=== PATIENT | female | born 1970 | race Hispanic/Latino ===

== ENCOUNTER 2025-07-17 01:45 | Emergency (ER) | payer MEDICARE, MEDICAID ==
[~2025-07-17] VITALS: Ht 127 cm; Wt 94.3 kg
[2025-07-17 02:15] LABS: IMMATURE GRANULOCYTE ABSOLUTE 0.01 K/uL (0-1); NUCLEATED RED BLOOD CELLS 0.0 % (0.0-0.19); PLATELET COUNT (AUTO) 233 K/uL (130-400); RED BLOOD CELL COUNT(AUTO) 4.91 MIL/uL (4.00-5.50); RED CELL DISTRIBUTION WIDTH 13.8 % (11.0-15.5); WHITE BLOOD COUNT (AUTO) 3.5 K/uL (4.8-10.8)
[2025-07-17 03:01] LABS: CREATINE KINASE, TOTAL 113.0 U/L (21-232); CREATININE 0.9 mg/dL (0.5-1.0); GLOMERULAR FILTR. RATE CALC 75.0 mL/min (>90); GLUCOSE,RANDOM 209.0 mg/dL (70-105); SODIUM SERUM 132.0 mmol/L (136-145); UREA NITROGEN, BLOOD 18.0 mg/dL (7-18)
--- NOTE | 2025-07-17 03:26 | HMCIMG ---
EXAM: CR Chest, 1 View. CLINICAL HISTORY: CHEST PAIN COMPARISON: None provided. FINDINGS: LUNGS: There is no mass, infiltrate, or acute pulmonary abnormality. Prominent bronchovascular markings in bilateral perihilar and lower zone, with thickening of bronchovascular interstitium, concerning for bronchitis/interstitial pulmonary edema. PLEURAL SPACES: No evidence of pleural effusion or pneumothorax. MEDIASTINUM: Cardiac size and mediastinal contours are within normal limits. BONES: No aggressively appearing osseous lesion was seen. IMPRESSION: No acute cardiopulmonary pathology is evident. Prominent bronchovascular markings in bilateral perihilar and lower zone, with thickening of bronchovascular interstitium, concerning for bronchitis/interstitial pulmonary edema. Advise follow-up with chest x-ray/echocardiography if clinically required. /[place]
--- NOTE | 2025-07-17 04:25 | ERN ---
ED Note History of Present Illness Stated Complaint: CHEST PAIN Chief Complaint: Chest Pain Time Seen by MD: 01:47 Dictation: This is a 55-year-old female who presented to the emergency room complaining of midsternal chest pain that started 40 minutes prior to the presentation. No f ever chills or rigors. PATIENT HAS TRISOMY 21 down syndrome but is quite independent with her ADLs. She stated that she fell asleep and woke up around 1:00 a.m. having midsternal pain associated with a tenderness. Denied any acid reflux symptoms but she does report some nausea and felt like she was going to vomit. She ate chicken noodle soup for dinner. No diarrhea. Temperature 98.2 pulse 58 respirations 18 blood pressure 134/64 with a pulse oximetry of 99% on room air Her chronic medical problems include diabetes mellitus type 1 on insulin pump, hypothyroidism, hypercholesterolemia, mineral corticoid deficiency and chronic h yponatremia on fludrocortisone Allergies: Coded Allergies: No Known Drug Allergies (Unverified Allergy, Unknown, 07/17/25) Past Medical History Past Medical History: Diabetes-Type II, High Cholesterol, Hypothyroid, Other Additional Past Medical Hx: TRISOMY 21-DOWN SYNDROME MINERAL CORTICOID DEFICIENCY-ON FLUDROCORTISONE Surgical History: Unknown Family History: Negative Social History: Negative History: Not Applicable RN Note Reviewed/Agreed w/PFSH: Yes Review of System Dictation Constitutional: Negative for fever,chills, and weight loss Eyes: Negative for injury, pain,redness, and discharge ENT: Negative for injury,pain or swelling Cardiovascular: Positive for midsternal chest pain, bradycardia and edema. Positive for tenderness on palpation Respiratory: Negative for shortness of breath, cough, and wheezing, QT 4 PND and orthopnea Abdomen/GI: Negative for abdominal pain, nausea, vomiting, diarrhea, and constipation Back: Negative for injury and pain : Negative for injury, bleeding and discharge MS/Extremity: Negative for injury and deformity Skin: Negative for rash, and discoloration Neuro: Negative for headache, weakness, numbness, tingling, and seizure Psych: Negative for suicide ideation, homicidal ideation, and hallucinations Initial Vital Sign VS Vital Signs Date Time Temp Pulse Resp B/P (MAP) Pulse Ox O2 Delivery O2 Flow Rate FiO2 07/17/25 02:03 98.2 58 18 134/64 99 Room Air 0 12/24/25 02:07 21 Physical Exam Dictation General: awake, alert, NAD Head/Face: Normocephalic, atraumatic Eyes: PERRL, EOMI, vision at baseline ENT: oral cavity clear, TMs clear, no signs of infection Neck: Trachea midline, supple, no nuchal rigidity Cardiovascular: RRR, normal S1/S2, No MRGs, no JVD chest wall is tender Respiratory: CTAB, no respiratory distress, No rales or wheezes Abdomen: Soft, non-tender, non-distended, normal bowel sounds, no guarding or rebound. Skin: Warm, dry, normal turgor, no rash MS/Extremity: Pulses equal, no cyanosis, neurovascular intact, FROM Neuro: COAx4, GCS 15, strength 5/5, CN 2-12 intact, normal cerebellar exam, normal gait, Psych: Normal behavior, mood, and affect normal Extremities-trace edema without any palpable cords, Homans sign is negative Results (Laboratory/Radiology) Laboratory/Radiology Laboratory Tests Test 07/17/25 02:08 07/17/25 02:35 07/17/25 04:30 White Blood Count 3.5 K/uL (4.8-10.8) L Red Blood Count 4.91 MIL/uL (4.00-5.50) Hemoglobin 15.6 g/dL (12.0-16.0) Hematocrit 43.5 % (36-48) Mean Corpuscular Volume 88.6 fL (79-99) Mean Corpuscular Hemoglobin 31.8 pg (27.0-33.0) Mean Corpuscular Hemoglobin Concent 35.9 g/dL (32.0-36.0) Red Cell Distribution Width 13.8 % (11.0-15.5) Platelet Count 233 K/uL (130-400) Mean Platelet Volume 10.0 fL (7.5-10.5) Immature Granulocyte % (Auto) 0.3 % (0-1) Neutrophils (%) (Auto) 42.0 % (40.0-77.0) Lymphocytes (%) (Auto) 45.8 % (21.0-51.0) Monocytes (%) (Auto) 9.0 % (3.0-13.0) Eosinophils (%) (Auto) 0.9 % (0.0-8.0) Basophils (%) (Auto) 2.0 % (0.0-5.0) Neutrophils # (Auto) 1.5 K/uL (1.8-7.7) L Lymphocytes # (Auto) 1.6 K/uL (1.0-4.8) Monocytes # (Auto) 0.3 K/uL (0.1-1.0) Eosinophils # (Auto) 0.03 K/uL (0.00-0.70) Basophils # (Auto) 0.07 K/uL (0.00-0.20) Absolute Immature Granulocyte (auto 0.01 K/uL (0-1) Nucleated Red Blood Cells 0.0 % (0.0-0.19) Troponin I High Sensitivity 7 ng/L (4-50) Sodium Level 132 mmol/L (136-145) L Potassium Level 3.1 mmol/L (3.5-5.1) L Chloride Level 94 mmol/L (101-111) L Carbon Dioxide Level 32 mmol/L (21-32) Blood Urea Nitrogen 18 mg/dL (7-18) Creatinine 0.9 mg/dL (0.5-1.0) Glomerular Filtration Rate Calc 75 mL/min (>90) Random Glucose 209 mg/dL (70-105) H Total Calcium 8.4 mg/dL (8.5-10.1) L Total Creatine Kinase 113 U/L (21-232) Urine Color COLORLESS (YELLOW) Urine Appearance CLEAR (CLEAR) Urine pH 6.5 (5.0-8.0) Urine Specific [place] 1.010 (1.001-1.031) Urine Protein NEGATIVE mg/dL (NEGATIVE) Urine Glucose (UA) NEGATIVE mg/dL (NEGATIVE) Urine Ketones 10 mg/dL (NEGATIVE) H Urine Occult Blood NEGATIVE (NEGATIVE) Urine Nitrate NEGATIVE (NEGATIVE) Urine Bilirubin NEGATIVE mg/dL (NEGATIVE) Urine Urobilinogen 0.2 mg/dL (0.2-1.0) Urine Leukocyte Esterase 75 Blane/uL (NEGATIVE) H Urine RBC 0-1 /HPF (0-1) Urine WBC 0-1 /HPF (0-1) Urine Squamous Epithelial Cells RARE /HPF (0-2) Urine Bacteria None /HPF (None Seen) Labs Reviewed?: Yes EKG Comment: Lead EKG done on 07/17/2025 at 2:04 a.m. showed a heart rate of 49, MA interval 155 QRS 72, QT/QTC 452/420 Impression sinus bradycardia nonspecific ST-T changes noted. Interpreted by ER MD Dr. Richardson X-RAY Comment: REASON: CHEST PAIN ORDERING PHYSICIAN: PRICILLA RICHARDSON MD PROCEDURE: CXR1VW - CHEST 1VW EXAM: CR Chest, 1 View. CLINICAL HISTORY: CHEST PAIN COMPARISON: None provided. FINDINGS: LUNGS: There is no mass, infiltrate, or acute pulmonary abnormality. Prominent bronchovascular markings in bilateral perihilar and lower zone, with thickening of bronchovascular interstitium, concerning for bronchitis/interstitial pulmonary edema. PLEURAL SPACES: No evidence of pleural effusion or pneumothorax. MEDIASTINUM: Cardiac size and mediastinal contours are within normal limits. BONES: No aggressively appearing osseous lesion was seen. IMPRESSION: No acute cardiopulmonary pathology is evident. Prominent bronchovascular markings in bilateral perihilar and lower zone, with thickening of bronchovascular interstitium, concerning for bronchitis/interstitial pulmonary edema. Advise follow-up with chest x-ray/echocardiography if clinically required. /[place] DICTATED BY: ELISE FREEMAN Jr., MD DATE: 07/17/25424 ELECTRONICALLY SIGNED BY: ELISE FREEMAN Jr., MD DATE: 07/17/25424 ED Course ED Course Orders Procedure Category Date Status Time Vital Signs Per CPOE 07/17/25 Transmitted Routine 02:06 Chest 1vw RAD 07/17/25 Resulted 02:06 12 Lead Ekg Tracing- EKG 07/17/25 Logged Technical 02:06 Oxygen By Nc/Pulse Ox CPOE 07/17/25 Transmitted 02:06 Maintain Iv CPOE 07/17/25 Transmitted 02:06 Iv Insertion CPOE 07/17/25 Transmitted 02:06 Cardiac Monitoring CPOE 07/17/25 Transmitted 02:06 Pulse Oximetry With CPOE 07/17/25 Transmitted Vs And Prn 02:06 Cbc With Differential LAB 07/17/25 Complete 02:06 Activity: Br W/Brp CPOE 07/17/25 Transmitted With Assist 02:06 Troponin I High LAB 07/17/25 Complete Sensitivity 02:06 Urinalysis Profile LAB 07/17/25 Complete 02:06 Basic Metabolic Panel LAB 07/17/25 Complete 02:29 Creatine Kinase, Total LAB 07/17/25 Complete 02:29 Culture Urine ONEIDA 07/17/25 In Process 04:47 Ketorolac PHA 07/17/25 Complete Tromethamine 15mg/Ml 05:00 Ondansetron 4mg Inj PHA 07/17/25 In Process (Zofran 4mg Inj) 05:00 Potassium Bicarb/Cit PHA 07/17/25 Complete Ac 25meq (K-Lyte Ta 05:00 Current Medications Medications (Trade) Dose Ordered Sig/Trinh Route PRN Reason Start Time Stop Time Status Last Admin Dose Admin Ketorolac Tromethamine (toRADol) 15 mg ONCE ONCE IV 07/17/25 05:00 07/17/25 05:07 DC 07/17/25 05:35 Ondansetron HCl (zoFRAN 4MG INJ) 4 mg ONCE ONCE IVP 07/17/25 05:00 07/17/25 05:07 DC 07/17/25 05:34 Potassium Bicarbonate (K-Lyte Tablet Eff 25 Meq Tablet.eff) 50 meq ONCE ONCE PO 07/17/25 05:00 07/17/25 05:07 DC 07/17/25 05:34 Vital Signs Date Time Temp Pulse Resp B/P (MAP) Pulse Ox O2 Delivery O2 Flow Rate FiO2 07/17/25 05:38 98.4 58 14 134/83 99 Room Air* 0 21 07/17/25 02:07 98.2 48 12 163/59 100 Room Air* 0 21 07/17/25 02:03 98.2 58 18 134/64 99 Room Air 0 HEART Score Response (Comments) Value History: Low suspicion (0) 0 EKG: Normal 0 Age: 45-65yrs (+1) 1 Risk Factors: 1-2 risk factors (+1) 1 Initial Troponin: Normal limit (0) 0 HEART Score Risk: Low Risk for MACE (1-3) Total 2 Medical Decision Making MDM Differential diagnosis: Chest wall pain, unstable angina, ACS Esophagitis, gastroesophageal reflux disease, hiatal hernia, gastritis, pericarditis, costochondritis, pleurisy This is a 55-year-old female who presented to the emergency room complaining of midsternal chest pain that started 40 minutes prior to the presentation. No fever chills or rigors. PATIENT HAS TRISOMY 21 down syndrome but is quite independent with her ADLs. She stated that she fell asleep and woke up around 1:00 a.m. having midsternal pain associated with a tenderness. Denied any acid reflux symptoms but she does report some nausea and felt like she was going to vomit. She ate chicken noodle soup for dinner. No diarrhea. Temperature 98.2 pulse 58 respirations 18 blood pressure 134/64 with a pulse oximetry of 99% on room air Her chronic medical problems include diabetes mellitus type 1 on insulin pump, hypothyroidism, hypercholesterolemia, mineral corticoid deficiency and chronic hyponatremia on fludrocortisone 4:45 a.m. labs reviewed BNP 7 showed a sodium of 132 chloride 94 potassium 3.1 BUN and creatinine are 18 and 0.9 troponins are negative. CBC is with a normal limits urinalysis is pending Rationale: Tests considered and ordered secondary to shared decision making include: Labs EKG and chest x-ray Previous outside records reviewed: Old ER visits. Risk of complication and/or morbidity or mortality of patient management: None Medications-Per medication reconciliation Need for hospitalization: Patient does not meet criteria for hospitalization. Need for emergency major/minor surgery: No There are no social concerns with this patient. Prescription drug management Prescriptions will include symptomatic care Patient's prior external medical records from other ER visits were reviewed by me as indicated. Prior testing and results from previous visits were reviewed. Prior tests were taken into account with medical decision making and resource utilization, independent historian/historians were used to obtain complete medical history. I independently interpreted the test that were performed, results were reviewed by me and considered findings on radiology if ordered. Medical management and examination interpretation discussions were had by me with other qualified healthcare professionals as indicated for the patient's care. Problem List Problem List: (1) Atypical chest pain (2) Chest wall pain (3) Sinus bradycardia (4) Hypothyroidism (5) Trisomy 21 (6) Down syndrome DX & DISP Disposition: Discharge Departure Impression: Primary Impression: Atypical chest pain Additional Impressions: Chest wall pain, Sinus bradycardia, Hypothyroidism, Trisomy 21, Down syndrome Condition: Stable Additional Instructions: Patient and the caregiver have been informed of all the diagnostic tests and the imaging conducted during the today's visit to the emergency room and has verbalized understanding of the results I have personally reviewed and interpreted all diagnostic exams performed here in the ER today as well as the vital signs documented by the nursing staff. The patient is now being discharged to home and should follow up with the primary care physician or the specialist as directed by the ER staff. 1 schedule a follow-up appointment; call your primary care physician's office on the next business day to set up a follow-up appointment. 2. Monitor symptoms; if your symptoms worsen return to the emergency room immediately. 3. Return to school/work; you may return to work or school in 2 days or as directed by your primary care physician. 4. Manage pain and fever; take [id number] Tylenol or Advil for pain or fever if there are no contraindications follow the recommended dosage instructions. 5. Stay well hydrated; drink plenty of oral fluids to stay hydrated. 6. Take prescribed medications; take any medications prescribed in the emergency room as directed bring them with you to your primary care physician visit for possible adjustments. 7. Complete medication course; finish the entire course of medication as prescribed even if you start feeling better. Do not have any leftover medication unless instructed otherwise. 8. Follow up on culture results; if a urine culture and wound culture was ordered in the emergency room please follow-up with your primary care physician within 2-3 days to review the culture and sensitivity report for appropriate antibiotic therapy adjustments. 9. Resume home medications; you may resume taking your home medications unless instructed otherwise. PRICILLA RICHARDSON MD Jul 17, 2025 04:24
[2025-07-17 04:42] LABS: APPEARANCE,URINE CLEAR (CLEAR); GLUCOSE, URINE (UA) NEGATIVE (NEGATIVE); LEUKOCYTE ESTERASE ,URINE 75 Leu/uL (NEGATIVE); NITRATE,URINE NEGATIVE (NEGATIVE); OCCULT BLOOD,URINE NEGATIVE (NEGATIVE)
[2025-07-17 04:46] LABS: ADD UA MICROSCOPIC YES
[2025-07-17 04:52] LABS: SQUAMOUS EPITHELIAL CELL,UR RARE /HPF (0-2)
[2025-07-17 07:04] VITALS: BP 128/78; PULSE 57; RESP 14; TEMP 98.2; O2SAT 99
--- NOTE | 2025-07-17 08:47 | EKG ---
[facility] Test Date: 2025-07-17 Test Time: 02:04:10 Pat Name: AUSTIN GALE Department: ED Room: Gender: F Ticketing Clerk: [id number] : 1970 Requested By: PRICILLA RICHARDSON Order Number: [id number] Reading MD: Cabrera Baugh Measurements Intervals [place] Rate: 49 P: 7 WI: 155 QRS: 17 QRSD: 72 T: 84 QT: 462 QTc: 420 Interpretive Statements Sinus bradycardia Probable left atrial enlargement No previous ECG available for comparison Electronically Signed On 07-18-2025 10:11:05 TELESCOPE REPAIRER by Cabrera Baugh Please click the below link to view image of tracing.
== END 2025-07-17 07:05 | disposition home or self-care (01) ==
LOC: EDH 01:45
DX: R07.89 Other chest pain (principal); R00.1 Bradycardia, unspecified; E03.8 Other specified hypothyroidism; Q90.9 Down syndrome, unspecified; E11.9 Type 2 diabetes mellitus without complications; E78.00 Pure hypercholesterolemia, unspecified
CPT/HCPCS: 99285; 96374; 71045; 96375; 82550; 84484; 80048; 85025; 87086; 81001; 36415; 93005; J1885; J2405